=== PATIENT | female | born 1960 | race Caucasian/White ===

== ENCOUNTER 2019-11-24 04:29 | Emergency (ER) | payer OTHER ==
[~2019-11-24] VITALS: Ht 160 cm; Wt 101.2 kg
--- NOTE | 2019-11-24 05:17 | NUR ---
BLD DRAWN WITH BUTTERFLY TO TOP OF L-HAND ON 1ST ATTEMPT. PT TOLERATED WELL
--- NOTE | 2019-11-24 05:20 | NUR ---
BLANKET GIVEN FOR COMFORT.
--- NOTE | 2019-11-24 05:22 | Diagnostic Imaging Report ---
Examination: Single AP view of the chest. COMPARISON: None. INDICATION: Cough for 3-4 days, chest pain IMPRESSION: 1. Lines and Tubes: None 2. Lungs are grossly clear. No consolidation or effusion. 3. Cardiomediastinal silhouette is normal. Pulmonary vasculature is normal. 4. No acute bony abnormalities. Signed by: Dr. Deon Francis M.D. on 11/24/2019 5:19 AM
--- NOTE | 2019-11-24 06:00 | NUR ---
NOTED PT HAS NOT BEEN COUGHING EXCEPT WHEN SHE IS UP WALKING AROUND. RESTING QUIETLY AT THIS TIME
--- NOTE | 2019-11-24 06:20 | NUR ---
ALL TEST RESULTS PLACED ON CHART. CHART TO MD DESK FOR DISPO
--- NOTE | 2019-11-24 06:35 | Emergency Department Note ---
History of Present Illnes History of Present Illness Chief Complaint: Respiratory History of Present Illness This is a 59 year old female Chief Complaint Comment C/O COUGH AND SOB, SORE THROAT SINCE MON . STATES WOKE SELF COUGHING UP BLOOD ABOUT 0345/0400. THROAT HURTS. WANTS TESTED FOR COVID . Historian: Patient Arrival Mode: Car Onset (how long ago): day(s) (2) Location: cough Quality: dull Radiation: Reports non-radiation Severity: mild Onset quality: gradual Duration (how long): day(s) (1) Timing of current episode: intermittent Progression: waxing and waning Context: Denies recent surgery, Denies recent immobilization, Denies recent travel, Denies trauma/injury, Denies new medications, Denies hx of DVT/PE, Denies non-compliance w/ medications, Denies other Relieving factors: none Exacerbating factors: none Associated symptoms: Reports denies other symptoms Treatments prior to arrival: none Past Medical/Family History Physician Review I have reviewed the patient's past medical and family history. Any updates have been documented here. Past Medical History Recent Fever: No Clinical Suspicion of Infectio: No New/Unexplained Change in Ment: No Past Medical History: Hypertension, Anxiety, Depression Past Surgical History: None Social History Smoking Cessation: Never Smoker Alcohol Use: Occasional Any Illegal Drug Use: No Physically hurt or threatened: No Other Any Pre-Existing Lines (PICC,: No Review of Systems Review of Systems Constitutional: Reports no symptoms EENTM: Reports no symptoms Cardiovascular: Reports no symptoms Respiratory: Reports as per HPI Gastrointestinal: Reports no symptoms Genitourinary: Reports no symptoms Musculoskeletal: Reports no symptoms Integumentary: Reports no symptoms Neurological: Reports no symptoms Psychological: Reports no symptoms Endocrine: Reports no symptoms Hematological/Lymphatic: Reports no symptoms Physical Exam Related Data Triage Vital Signs Vital Signs Date Time Temp Pulse Resp B/P (MAP) Pulse Ox O2 Delivery O2 Flow Rate FiO2 11/24/19 04:42 98.1 86 18 139/84 97 Room Air Vital signs reviewed: Yes Physical Exam CONSTITUTIONAL Constitutional: Present well-developed, Present well-nourished HENT HENT: Present normocephalic, Present atraumatic, Present oropharynx dipak ar/moist, Present nose normal HENT L/R: Present left ext ear normal, Present right ext ear normal EYES Eyes: Reports PERRL, Reports conjunctivae normal NECK Neck: Present ROM normal PULMONARY Pulmonary: Present effort normal, Present breath sounds normal CARDIOVASCULAR Cardiovascular: Present regular rhythm, Present heart sounds normal, Present capillary refill normal, Present normal rate GASTROINTESTINAL Abdominal: Present soft, Present nontender, Present bowel sounds normal GENITOURINARY Genitourinary: Present exam deferred SKIN Skin: Present warm, Present dry MUSCULOSKELETAL Musculoskeletal: Present ROM normal NEUROLOGICAL Neurological: Present alert, Present oriented x 3, Present no gross motor or sensory deficits PSYCHOLOGICAL Psychological: Present mood/affect normal, Present judgement normal Results Laboratory Lab results reviewed: Yes Imaging Imaging results reviewed: Yes Assessment & Plan Medical Decision Making MDM bronchitis pneumonia Reassessment Reassessment time: 06:34 Reassessment better Assessment & Plan Final Impression: (1) Acute bronchitis Depart Disposition: HOME, SELF-CARE Last Vital Signs Date Time Temp Pulse Resp B/P (MAP) Pulse Ox O2 Delivery O2 Flow Rate FiO2 11/24/19 04:42 98.1 86 18 139/84 97 Room Air SHELBY ROMERO MD Nov 24, 2019 06:35
[2019-11-24 06:47] VITALS: BP 136/80
== END 2019-11-24 06:46 | disposition home or self-care (01) ==
LOC: FSED 05:10
DX: J20.9 Acute bronchitis, unspecified (principal); R06.02 Shortness of breath; R05 Cough; I10 Essential (primary) hypertension; F41.9 Anxiety disorder, unspecified; F32.9 Major depressive disorder, single episode, unspecified
CPT/HCPCS: 71045; 85025; 99283

== ENCOUNTER 2019-11-29 03:23 | Emergency (ER) | payer OTHER ==
[~2019-11-29] VITALS: Ht 160 cm; Wt 104.3 kg
--- NOTE | 2019-11-29 03:49 | Emergency Department Note ---
History of Present Illnes History of Present Illness Chief Complaint: Respiratory History of Present Illness This is a 59 year old femalehief Complaint Comment cough. Chief Comp laint Comment PT STATED SHE IS HAVING COUGH, CONGESTION AND SORE THROAT WITH NAUSEA, PT STATED SHE WAS SEEN HERE ON THE AND GIVEN A RX FOR ANTIBIOTICS BUT DID NOT TAKE IT . NO DISTRESS NOTED IN TRIAGE. Onset (how long ago): day(s) (3) Location: throat Quality: dull Radiation: Denies non-radiation, Denies back, Denies neck, Denies extremity, Denies abdomen, Denies periumbilical, Denies flank, Denies proximal, Denies distal, Denies other Severity: moderate Onset quality: gradual Duration (how long): day(s) (3) Timing of current episode: intermittent Progression: waxing and waning Chronicity: new Context: Denies recent illness, Denies recent surgery, Denies recent immobilization, Denies recent travel, Denies trauma/injury, Denies new medications, Denies hx of DVT/PE, Denies non-compliance w/ medications, Denies other Relieving factors: none Exacerbating factors: none Associated symptoms: Reports denies other symptoms, Reports cough, Reports nausea/vomiting; Denies confusion, Denies chest pain, Denies diaphoresis, Denies fever/chills, Denies headaches, Denies loss of appetite, Denies malaise, Denies rash, Denies seizure, Denies shortness of breath, Denies syncope, Denies weakness, Denies other Treatments prior to arrival: none Past Medical/Family History Physician Review I have reviewed the patient's past medical and family history. Any updates have been documented here. Past Medical History Past Medical History: Hypertension, Hypothyroidism, Depression Past Surgical History: None Social History Smoking Cessation: Never Smoker Alcohol Use: Social Family History Family history of heart diseas: No Review of Systems Review of Systems Constitutional: Reports no symptoms EENTM: Reports no symptoms Cardiovascular: Reports no symptoms Respiratory: Reports as per HPI Gastrointestinal: Reports as per HPI Genitourinary: Reports no symptoms Musculoskeletal: Reports no symptoms Integumentary: Reports no symptoms Neurological: Reports no symptoms Psychological: Reports no symptoms Endocrine: Reports no symptoms Hematological/Lymphatic: Reports no symptoms Physical Exam Related Data Vital signs reviewed: Yes Physical Exam CONSTITUTIONAL Constitutional: Present well-developed, Present well-nourished HENT HENT: Present normocephalic, Present atraumatic, Present oropharynx clear/moist, Present nose normal HENT L/R: Present left ext ear normal, Present right ext ear normal EYES Eyes: Reports PERRL, Reports conjunctivae normal NECK Neck: Present ROM normal PULMONARY Pulmonary: Present effort normal, Present rhonchi CARDIOVASCULAR Cardiovascular: Present regular rhythm, Present heart sounds normal, Present capillary refill normal, Present normal rate GASTROINTESTINAL Abdominal: Present soft, Present nontender, Present bowel sounds normal GENITOURINARY Genitourinary: Present exam deferred SKIN Skin: Present warm, Present dry MUSCULOSKELETAL Musculoskeletal: Present ROM normal NEUROLOGICAL Neurological: Present alert, Present oriented x 3, Present no gross motor or sensory deficits PSYCHOLOGICAL Psychological: Present mood/affect normal, Present judgement normal Assessment & Plan Medical Decision Making [facility] osmanhitis,,,pneumoia Reassessment Reassessment time: 03:51 Reassessment better Assessment & Plan Final Impression: (1) Vomiting (2) Acute bronchitis Depart Disposition: HOME, SELF-CARE SHELBY ROMERO MD Nov 29, 2019 03:49
== END 2019-11-29 04:00 | disposition home or self-care (01) ==
LOC: FSED 03:45
DX: J20.9 Acute bronchitis, unspecified (principal); R05 Cough; R11.2 Nausea with vomiting, unspecified; I10 Essential (primary) hypertension; E03.9 Hypothyroidism, unspecified; F32.9 Major depressive disorder, single episode, unspecified
CPT/HCPCS: 99282

== ENCOUNTER 2020-07-28 16:02 | Emergency (ER) | payer OTHER ==
[~2020-07-28] VITALS: Ht 154.9 cm; Wt 101.2 kg
[2020-07-28] MEDS ORDERED: BAMLANIVIMAB 700 MG/20 ML VIAL IV ONE (17:15)
[2020-07-28] MEDS ORDERED: BAMLANIVIMAB 700 MG in SODIUM CHLORIDE 0.9% 250ML 250 ML IV ONE (17:45)
[2020-07-28] MEDS ORDERED: DEXAMETHASONE4 MG PO (20:40)
[2020-07-28 21:12] VITALS: BP 108/73
== END 2020-07-28 21:19 | disposition home or self-care (01) ==
LOC: ER 16:30
DX: U07.1 COVID-19 (principal); R06.02 Shortness of breath; R05 Cough; I10 Essential (primary) hypertension; E03.9 Hypothyroidism, unspecified; F32.9 Major depressive disorder, single episode, unspecified
CPT/HCPCS: 99284; J7050

== ENCOUNTER → 2022-11-10 | Outpatient (CLI) | payer OTHER ==
[~2022-11-10] MED LIST: DEXAMETHASONE4 MG PO; IOPAMIDOL 370 MG/ML 100 ML INFUS..BTL INJ ONE; NITROGLYCERIN 0.4 MG SUBL ONE; SODIUM CHLORIDE 0.9% 100 ML ONE; SODIUM CHLORIDE 0.9% 250ML 250 ML ONE
[2022-11-10 10:39] LABS: CREATININE, SERUM 1.27 mg/dL (0.57-1.11)
== END ==
LOC: CT 09:56
PROVIDERS: ATTEND Internal Medicine
DX: R94.31 Abnormal electrocardiogram [ECG] [EKG] (principal); I10 Essential (primary) hypertension; R06.02 Shortness of breath; E78.5 Hyperlipidemia, unspecified
CPT/HCPCS: 36415; 75574; 82565; 84520; J7050 ×2; Q9967